=== PATIENT | female | born 1985 | race Hispanic/Latino ===

== ENCOUNTER 2017-08-12 15:59 | Emergency (ER) | payer SELFPAY ==
[2017-08-12] MEDS ORDERED: ACETAMINOPHEN EXTRA STRENGTH 500 MG TABLET ONE (16:20)
[2017-08-12] MEDS ORDERED: BENZONATATE 100 MG CAPSULE PO ONE (16:20)
== END 2017-08-12 16:32 | disposition home or self-care (01) ==
LOC: EDH 15:59
DX: S29.012A Strain of muscle and tendon of back wall of thorax, initial encounter (principal); J06.9 Acute upper respiratory infection, unspecified; Z72.0 Tobacco use; V49.49XA Driver injured in collision with other motor vehicles in traffic accident, initial encounter; Y93.89 Activity, other specified; Y92.89 Other specified places as the place of occurrence of the external cause; Y99.8 Other external cause status